=== PATIENT | male | born 1950 | race Caucasian/White ===

== ENCOUNTER 2019-03-21 16:35 | Emergency (ER) | payer OTHER, BC ==
--- NOTE | 2019-03-21 17:28 | ER ---
HISTORY OF PRESENT ILLNESS: A 69-year-old male here with a fishhook imbedded into the right index finger. He was fishing today in the [place] and it happened early this afternoon. They cut off the third kodi of a treble hook. The other two are embedded into the index finger. The patient states he kept fishing for a while to finish the day. OBJECTIVE: GENERAL APPEARANCE: The patient is awake and alert. No obvious distress. VITAL SIGNS: Reviewed as listed. EXTREMITIES: Examining the right index finger reveals 2 books of treble hook are imbedded onto the medial side of the middle part of the finger, one just above the PIP joint, one just below the DIP joint. There is no bleeding at this time. The third hook has been cut off. DIAGNOSIS: Cornlea removal. TREATMENT PLAN: This area was swabbed with alcohol around both insertion sites after which I injected 1% lidocaine without epi locally. Then, using a string Yank method I was able to remove the hooks both at the same time in one attempt. The patient tolerated this well. POST CARE INSTRUCTIONS: The patient washed his hands with a cleansing soap here in the emergency room for a couple of minutes. Antibiotic ointment and a Band-Aid will be applied. He is to keep it covered for a couple of days. Monitor for infection. Tylenol or Motrin should be used as needed and followup is p.r.n. JENNIFER/JONA /[id number]
== END 2019-03-21 16:46 | disposition home or self-care (01) ==
LOC: LB.ED 16:35
DX: S60.450A Superficial foreign body of right index finger, initial encounter (principal); W45.8XXA Other foreign body or object entering through skin, initial encounter
CPT/HCPCS: 99283; J2001; 99282